=== PATIENT | female | born 1955 | race Caucasian/White ===

== ENCOUNTER 2023-09-12 16:01 | Emergency (ER) | payer MEDICARE, SELFPAY ==
--- NOTE | ~2023-09-12 | XR_ITS ---
EXAMINATION: XR chest 2V DATE: 09/12/2023 16:48 INDICATION: Decreased breath sounds. Wheezing. Chronic obstructive pulmonary disease. TECHNIQUE: Frontal and lateral views of the chest were obtained. COMPARISON: None. FINDINGS: The lungs are hyperexpanded. There are lucencies and reticular opacities in the lungs, cons istent with emphysema. There is mild atelectasis versus scarring in the lower lung zones. There is mi ld scarring at the lung apices. No pleural effusion or pneumothorax. The heart size is normal. Calcif ied left hilar lymph nodes are consistent with old granulomatous disease. IMPRESSION: 1. Emphysema. 2. Mild atelectasis versus scarring in the lower lung zones. Mild scarring at the lung apices. Reviewed, dictated and finalized at location [facility] IMPRESSION: 1. Emphysema. 2. Mild atelectasis versus scarring in the lower lung zones. Mild scarring at t he lung apices.
[2023-09-12 16:18] VITALS: BP 125/85; PULSE 82; RESP 16; TEMP 36.8; O2SAT 99
[2023-09-12 16:26] VITALS: BP 125/85; PULSE 82; RESP 16; TEMP 36.8; O2SAT 99
--- NOTE | 2023-09-12 16:30 | ED.SKABFB ---
HPI - Skin/Abscess/Foreign Bdy General Chief complaint: Skin/Abscess/Foreign Body Stated complaint: Thrush/swelling lower extremities Time Seen by Provider: 09/12/23 16:31 Source: patient Mode of arrival: ambulatory Limitations: no limitations History of Present Illness HPI narrative: 68 yo F with hx of diabetes, COPD, HTN presents with multiple complaints. c/o sorenss and redness to mouth. concerned for thrush. has had it before. wears dentures and also uses inhalers for COPD. Also c/o dyspnea, tightness and heaviness in chest. On 3L O2 at all times. Does neb tx 3 times a day. Cough not any worse than baseline. Afebrile. Pt states she is tired. Son states she looks pale. Pt c/o swelling to LEs for past 3 to 4 days. BS also 386 yesterday. All systems reviewed and negative except as noted above. Related Data Home Medications Medication Instructions Recorded Confirmed albuterol sulfate 90 mcg/actuation 2 puff inhalation Q6-8H PRN 09/12/23 09/12/23 aerosol inhaler Shortness Of Breath amitriptyline 50 mg tablet 50 mg PO HS 09/12/23 09/12/23 aspirin 81 mg tablet,delayed 81 mg PO DAILY 09/12/23 09/12/23 release budesonide-formoterol HFA 160 2 puff inhalation BID 09/12/23 09/12/23 mcg-4.5 mcg/actuation aerosol inhaler (Symbicort) cyclobenzaprine 10 mg tablet 10 mg PO TID PRN Muscle Spasm 09/12/23 09/12/23 ergocalciferol (vitamin D2) 1,250 50,000 unit PO WEEKLY 09/12/23 09/12/23 mcg (50,000 unit) capsule (Vitamin D2) fluoxetine 20 mg tablet 20 mg PO DAILY 09/12/23 09/12/23 folic acid 1 mg tablet 1 mg PO DAILY 09/12/23 09/12/23 gabapentin 800 mg tablet 1,200 mg PO TID 09/12/23 09/12/23 glipizide 5 mg tablet, extended 5 mg PO DAILY 09/12/23 09/12/23 release 24 hr insulin glargine 100 unit/mL (3 10 unit subcut QAM 02/23/24 02/23/24 mL) subcutaneous pen methotrexate sodium 2.5 mg tablet 2.5 mg PO DAILY 09/12/23 09/12/23 pantoprazole 40 mg tablet,delayed 40 mg PO QAM 09/12/23 09/12/23 release pioglitazone 15 mg tablet 15 mg PO DAILY 09/12/23 09/12/23 prednisone 5 mg tablet 15 mg PO DAILY 09/12/23 09/12/23 propranolol 60 mg capsule,24 60 mg PO DAILY 09/12/23 09/12/23 hr,extended release ropinirole 0.5 mg tablet 1 mg PO HS 09/12/23 09/12/23 simvastatin 20 mg tablet 20 mg PO HS 09/12/23 09/12/23 tramadol 50 mg tablet 50 mg PO TID PRN Pain 09/12/23 09/12/23 Allergies Allergy/AdvReac Type Severity Reaction Status Date / Time amoxicillin Allergy Hives Verified 09/12/23 16:19 clindamycin Allergy Hives Verified 09/12/23 16:19 Review of Systems Review of Systems: CONSTITUTIONAL: Denies fever, chills, or sweats. EYES: Denies visual changes, redness, or discharge. ENT: Denies rhinorrhea, congestion, sore throat, or otalgia. reports redness and pain to mouth CARDIOVASCULAR: Denies chest pain, palpitations. Reports lower leg edema. RESPIRATORY: Reports cough, dyspnea, chest tightness GASTROINTESTINAL: Denies abdominal pain, nausea, vomiting, or diarrhea. GENITOURINARY: Denies dysuria or hematuria. SKIN: Denies rash or itching. MUSCULOSKELETAL: Denies back pain, joint pain, or myalgia. NEUROLOGIC: Denies headache, numbness, or weakness. PSYCHIATRIC: Denies anxiety or depression. All other systems reviewed are negative, except as documented in HPI. PMFSH Comments At time of signature, agree with nursing past medical, surgical, social and family history. There is no relevant family history pertinent to the presenting complaint. Exam Narrative: GENERAL: This is a well-nourished, well-developed patient, in no apparent distress. HEAD: normocephalic, atraumatic. EYES: PERRL. Sclera clear/white. Vision is grossly intact. EARS: External ears normal, auditory canals clear and without drainage, TMs normal without perforation. Hearing grossly intact. NOSE: External nose normal with no obvious nasal discharge, nares without redness, no rhinorrhea. Oral: erythema to roof of mouth, white patches to tongue with erythema NE
--- NOTE | 2023-09-12 17:09 | ECG_ITS ---
Measurements Intervals [place] Rate: 73 P: 71 CA: 152 QRS: 7 QRSD: 94 T: 106 QT: 372 QTc: 411 Interpretive Statements SINUS RHYTHM POSSIBLE LEFT ATRIAL ENLARGEMENT [-0.1mV P WAVE IN V1/V2] RSR' V1 AND V2 NONSPECIFIC T-WAVE ABNORMALITY BORDERLINE ECG NO PREVIOUS ECG AVAILABLE FOR COMPARISON Electronically Signed On 09-13-2023 14:36:16 [employer] by Rickie Molina M.D.
== END 2023-09-12 17:21 | disposition short-term general hospital (02) ==
PROVIDERS: Emergency Provider Nurse Practitioner Family
DX: B37.0 Candidal stomatitis (principal); R60.0 Localized edema; R06.00 Dyspnea, unspecified; J44.9 Chronic obstructive pulmonary disease, unspecified; Z99.81 Dependence on supplemental oxygen; I10 Essential (primary) hypertension; E11.9 Type 2 diabetes mellitus without complications; Z79.82 Long term (current) use of aspirin
CPT/HCPCS: 71046; 93005; 99213; G0463